=== PATIENT | female | born 1985 | race African-American/Black ===

== ENCOUNTER 2021-06-28 17:01 | Outpatient (CLI) | payer MEDICAID | END 2021-06-28 17:02 | disposition critical access hospital (66) | LOC: EMS 17:01 | DX: O46.92 Antepartum hemorrhage, unspecified, second trimester (principal) | CPT/HCPCS: A0425; A0429; A0999 ==

== ENCOUNTER 2021-06-28 17:06 | Observation (INO) | payer MEDICAID ==
[2021-06-28 17:32] LABS: BASOPHILS % (AUTO) 0.2 %; EOSINOPHILS # (AUTO) 0.1 10^3/uL (0.0-0.7); EOSINOPHILS % (AUTO) 1.4 %; HCT - HEMATOCRIT 30.9 % (37.0-47.0); HGB - HEMOGLOBIN 10.5 g/dL (12.0-16.0); LYMPHOCYTES # (AUTO) 1.8 10^3/uL (1.5-3.5); LYMPHOCYTES % (AUTO) 20.7 %; MEAN CORPUSCULAR HEMOGLOBIN 30.3 pg (27.0-31.0); MEAN CORPUSCULAR VOLUME 89.3 fL (81.0-99.0); MEAN PLATELET VOLUME 8.7 fL (7.9-10.8); MONOCYTES # (AUTO) 0.7 10^3/uL (0.0-1.0); MONOCYTES % (AUTO) 7.6 %; NEUTROPHILS # (AUTO) 6.1 10^3/uL (1.5-6.6); NEUTROPHILS % (AUTO) 69.1 %; PLT - PLATELET COUNT 386 10^3/uL (130-450); RED BLOOD COUNT 3.46 10^6/uL (4.20-5.40); RED CELL DISTRIBUTION WIDTH 13.1 % (12.0-15.0); WHITE BLOOD COUNT 8.8 x10^3/uL (4.8-10.8)
--- NOTE | 2021-06-28 17:35 | ED Physician Documentation ---
History of Present Illness - Stated complaint Stated Complaint: FEMALE - Chief complaint Chief Complaint: Abd Pain - History obtained from History obtained from: Patient - History of Present Illness Timing: Today Pain level max: 0 Pain level now: 0 - Additonal information Additional information: Patient is a 35-year-old female who presents to the emergency department complaining of vaginal bleeding today. G3, P0. She states that she has had constipation for the past few days, today while on the toilet she felt a large gush of fluid from her vaginal area followed by a large amount of bleeding. Concerned about potential miscarriage. She is unsure how far along she is. She could be anywhere from 18 to 22 weeks . She thinks that she had an ultrasound either May 16 or May 23 at [facility] in [place]. Recently moved here. She thinks that she was either 15 or 16 weeks along at that time. She states that she has had no other issues with her . She is having mild abdominal pain and cramping. Review of Systems Ten Systems: 10 systems reviewed and negative Constitutional: denies: Fever, Chills Nose: denies: Rhinorrhea / runny nose, Congestion GI: denies: Vomiting, Diarrhea Skin: denies: Rash Musculoskeletal: denies: Neck pain, Back pain Neurologic: denies: Headache PD PAST MEDICAL HISTORY - Past Medical History Past Medical History: No - Past Surgical History Past Surgical History: No - Allergies Allergies/Adverse Reactions: Allergies Allergy/AdvReac Type Severity Reaction Status Date / Time No Known Drug Allergies Allergy Verified 06/28/21 17:32 PD ED PE NORMAL - Vitals Vital signs reviewed: Yes - General General: Alert and oriented X 3, No acute distress - HEENT HEENT: PERRL, Moist mucous membranes - Neck Neck: Supple, no meningeal sign - Cardiac Cardiac: RRR, Strong equal pulses - Respiratory Respiratory: No respiratory distress, Clear bilaterally - Abdomen Abdomen: Soft, Non tender, Other (Gravid abdomen) - Female Female : Deferred (Deferred to OB) - Back Back: No CVA TTP, No spinal TTP - Derm Derm: Warm and dry - Extremities Extremities: Other (Amniotic fluid present on her jeans.) - Neuro Neuro: Alert and oriented X 3 - Psych Psych: Normal mood, Normal affect Results - Vitals Vitals: Vital Signs - 24 hr 06/28/21 06/28/2122 17:25 17:32 18:53 Temperature 36.7 C Heart Rate 109 H 101 H 95 Respiratory 16 14 14 Rate Blood Pressure 144/77 H 141/83 H 145/84 H O2 Saturation 100 100 100 06/28/21 19:00 Temperature Heart Rate 105 H Respiratory 18 Rate Blood Pressure 145/84 H O2 Saturation 100 Oxygen O2 Source Room air - Labs Labs: Laboratory Tests 06/28/21 06/28/21 06/28/21 17:20 17:20 17:32 WBC 8.8 RBC 3.46 L Hgb 10.5 L Hct 30.9 L MCV 89.3 MCH 30.3 MCHC 34.0 RDW 13.1 Plt Count 386 MPV 8.7 Neut # (Auto) 6.1 Lymph # (Auto) 1.8 Elk # (Auto) 0.7 Eos # (Auto) 0.1 Baso # (Auto) 0.0 Absolute Nucleated RBC 0.00 Nucleated RBC % 0.0 PT 10.8 INR 1.0 APTT 30.1 Sodium 136 Potassium 3.8 Chloride 106 Carbon Dioxide 22 Anion Gap 8.0 BUN 8 Creatinine 0.5 Estimated GFR (MDRD) 139 Glucose 87 Calcium 9.6 Total Bilirubin 0.3 AST 20 ALT 25 Alkaline Phosphatase 36 L Total Protein 6.7 Albumin 3.5 Globulin 3.2 Albumin/Globulin Ratio 1.1 Lipase 35 Membranes Rupture Nasal Adenovirus (PCR) Nasal B. parapertussis DNA (PCR) Nasal Coronavir 229E PCR Nasal Coronavir HKU1 PCR Nasal Coronavir NL63 PCR Nasal Coronavir OC43 PCR Nasal Enterovir/Rhinovir PCR Nasal Influenza B PCR Nasal Influenza A PCR Nasal Parainfluen 1 PCR Nasal Parainfluen 2 PCR Nasal Parainfluen 3 PCR Nasal Parainfluen 4 PCR Nasal RSV (PCR) Nasal B.pertussis DNA PCR Nasal C.pneumoniae (PCR) Quique Human Metapneumo PCR Nasal M.pneumoniae (PCR) Nasal SARS-CoV-2 (PCR) C. glabrata (PCR) C. krusei (PCR) Kelly species DNA T. vaginalis (PCR) Bact Vaginosis (PCR) Blood Type Blood Type Recheck 06/28/21 06/28/21 06/28/21 17:32 17:45 17:46 WBC RBC Hgb Hct MCV MCH MCHC RDW Plt Count MPV Neut # (Auto) Lymph # (Auto) Elk # (Auto) Eos # (Auto) Baso # (Auto) Absolute Nucleated RBC Nucleated RBC % PT INR APTT Sodium Potassium Chloride Carbon Dioxide Anion Gap BUN Creatinine Estimated GFR (MDRD) Glucose Calcium Total Bilirubin AST ALT Alkaline Phosphatase Total Protein Albumin Globulin Albumin/Globulin Ratio Lipase Membranes Rupture POSITIVE A Nasal Adenovirus (PCR) Nasal B. parapertussis DNA (PCR) Nasal Coronavir 229E PCR Nasal Coronavir HKU1 PCR Nasal Coronavir NL63 PCR Nasal Coronavir OC43 PCR Nasal Enterovir/Rhinovir PCR Nasal Influenza B PCR Nasal Influenza A PCR Nasal Parainfluen 1 PCR Nasal Parainfluen 2 PCR Nasal Parainfluen 3 PCR Nasal Parainfluen 4 PCR Nasal RSV (PCR) Nasal B.pertussis DNA PCR Nasal C.pneumoniae (PCR) Quique Human Metapneumo PCR Nasal M.pneumoniae (PCR) Nasal SARS-CoV-2 (PCR) C. glabrata (PCR) C. krusei (PCR) Kelly species DNA T. vaginalis (PCR) Bact Vaginosis (PCR) Blood Type B POSITIVE Blood Type Recheck B POSITIVE 06/28/21 06/28/21 18:40 18:51 WBC RBC Hgb Hct MCV MCH MCHC RDW Plt Count MPV Neut # (Auto) Lymph # (Auto) Elk # (Auto) Eos # (Auto) Baso # (Auto) Absolute Nucleated RBC Nucleated RBC % PT INR APTT Sodium Potassium Chloride Carbon Dioxide Anion Gap BUN Creatinine Estimated GFR (MDRD) Glucose Calcium Total Bilirubin AST ALT Alkaline Phosphatase Total Protein Albumin Globulin Albumin/Globulin Ratio Lipase Membranes Rupture Nasal Adenovirus (PCR) NOT DETECTED Nasal B. parapertussis DNA (PCR) NOT DETECTED Nasal Coronavir 229E PCR NOT DETECTED Nasal Coronavir HKU1 PCR NOT DETECTED Nasal Coronavir NL63 PCR NOT DETECTED Nasal Coronavir OC43 PCR NOT DETECTED Nasal Enterovir/Rhinovir PCR NOT DETECTED Nasal Influenza B PCR NOT DETECTED Nasal Influenza A PCR NOT DETECTED Nasal Parainfluen 1 PCR NOT DETECTED Nasal Parainfluen 2 PCR NOT DETECTED Nasal Parainfluen 3 PCR NOT DETECTED Nasal Parainfluen 4 PCR NOT DETECTED Nasal RSV (PCR) NOT DETECTED Nasal B.pertussis DNA PCR NOT DETECTED Nasal C.pneumoniae (PCR) NOT DETECTED Quique Human Metapneumo PCR NOT DETECTED Nasal M.pneumoniae (PCR) NOT DETECTED Nasal SARS-CoV-2 (PCR) NOT DETECTED C. glabrata (PCR) NEGATIVE C. krusei (PCR) NEGATIVE Kelly species DNA NEGATIVE T. vaginalis (PCR) NEGATIVE Bact Vaginosis (PCR) POSITIVE A Blood Type Blood Type Recheck - Rads (name of study) OB ultrasound Radiology: Final report received, EMP read contemporaneously, See rad report PD MEDICAL DECISION MAKING - ED course Complexity details: reviewed results, re-evaluated patient, considered differential, d/w patient, d/w data communications software consultant ED course: 1727 - Dr. Villalpando - labs ordered, US ordered for dating. Patient was able to pull up her MyChart on her cell phone. It appears that she has 19 weeks and 3 days today. This would be consistent with her estimated due date of November 19, 2021. Patient appears to have a premature rupture of membranes. Patient is between [address] Ryan came and evaluated the patient. Her testing for ruptured membranes is positive. Oligohydramnios present. Patient will be placed in observation for further care. IMPRESSION: 1. Living second trimester intrauterine , measuring 20 weeks 2 days by today's ultrasound. 2. If the previous report is accurate, clinical age is 19 weeks 3 days. 3. Marked oligohydronephrosis. 4. Short cervix. Departure - Departure Disposition: ED Place in Observation Clinical Impression: Vaginal bleeding before 22 weeks gestation Premature rupture of membranes Qualifiers: PROM onset of labor timing: unspecified duration between rupture of membranes and onset of labor PROM gestational age: -second trimester Qualified Code(s): O42.912 - premature rupture of membranes, unspecified as to length of time between rupture and onset of labor, second trimester Condition: Stable Discharge Date/Time: 06/28/21 20:04
[2021-06-28 17:45] LABS: PT - PROTHROMBIN TIME 10.8 secs (9.9-12.6)
[2021-06-28 17:52] LABS: PARTIAL THROMBOPLASTIN TIME 30.1 secs (24.9-33.3)
[2021-06-28 17:55] LABS: RUPTURE OF MEMBRANES PLUS POSITIVE (NEGATIVE)
[2021-06-28 18:04] LABS: ALBUMIN 3.5 g/dL (3.2-5.5); ALBUMIN/GLOBULIN RATIO 1.1 (1.0-2.2); BILIRUBIN,TOTAL 0.3 mg/dL (0.2-1.0); CALCIUM 9.6 mg/dL (8.5-10.3); CREATININE 0.5 mg/dL (0.4-1.0); POTASSIUM 3.8 mmol/L (3.5-5.0); TOTAL PROTEIN 6.7 g/dL (6.7-8.2)
[2021-06-28 19:51] LABS: B. PARAPERTUSSIS- RESP PCR PAN NOT DETECTED; B. PERTUSSIS- RESP PCR PANEL NOT DETECTED; C. PNEUMONIAE- RESP PCR PANEL NOT DETECTED; CORONAVIRUS 229E-RESP PCR NOT DETECTED; CORONAVIRUS HKU1-RESP PCR NOT DETECTED; CORONAVIRUS NL63-RESP PCR NOT DETECTED; CORONAVIRUS OC43-RESP PCR NOT DETECTED; HUMAN METAPNEUMOVIRUS NOT DETECTED; INFLUENZA A- RESP PCR PANEL NOT DETECTED; INFLUENZA B - RESP PCR PANEL NOT DETECTED; M. PNEUMONIAE- RESP PCR PANEL NOT DETECTED; PARAINFLUENZA VIRUS 1 NOT DETECTED; PARAINFLUENZA VIRUS 2 NOT DETECTED; PARAINFLUENZA VIRUS 3 NOT DETECTED; PARAINFLUENZA VIRUS 4 NOT DETECTED; RHINOVIRUS/ENTEROVIRUS NOT DETECTED; RSV- RESP PCR PANEL NOT DETECTED; SARS-CoV-2 -RESP PCR PANEL NOT DETECTED
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
--- NOTE | 2021-06-28 20:16 | Ultrasound Report ---
PROCEDURE: OB 14+ Weeks INDICATIONS: vaginal bleeding/ 18-20 weeks. Question premature rupture of membranes. OUTSIDE/PRIOR DATING DATA: Last menstrual period (LMP): Unknown LMP-based estimated date of delivery (PATRICIA): Unknown. First dating scan (date and location): Unknown scan date. Estimated date of delivery (PATRICIA) from first dating scan: 5 prior report from [place], PATRICIA is 11/19/2021 . The below data below was generated using the prior ultrasound report PATRICIA of 11/19/2021 TECHNIQUE: Real-time scanning was performed of the fetus, with image documentation and biometric measurements. Endovaginal scanning: Not performed COMPARISON: None. FINDINGS: General: A single living intrauterine gestation is present. Presentation: Vertex Placenta: Placental position is anterior, without previa. Amniotic fluid index: 1.7 cm, markedly diminished for gestational age. Largest pocket is 0.93 cm heart rate: 131 beats per minute. Maternal cervical canal: 2.7 cm long; normal length is 2.5 cm or more. biometrics: Biparietal diameter: 4.75 cm, 20 weeks 3 days Head circumference: 16.98 cm, 19 weeks 4 days Abdominal circumference: 14.8 cm, 20 weeks 1 day Femur length: 3.5 cm, 21 weeks 1 day Estimated gestational age from initial scan: By report, 19 weeks 3 days Composite gestational age from present scan: 20 weeks 2 days Estimated weight and percentile: 357 g, 94.6 percentile Measurement variability for biometric dating: +/- 10 days from 12-20 weeks gestation, +/- 2 weeks fro m 20-30 weeks gestation, +/- 3 weeks for 30 weeks gestation or later. Anatomic survey: Neuro: Ventricles are non-dilated at less than 10 mm. Cisterna magna is normal at 3-11 mm. Cerebel lum is normal in size and morphology. Nuchal skin fold: Normal at less than 6 mm between 14-20 weeks gestational age. Face: Nose and lips, facial profile are normal. Spine: No evidence for spina bifida. Heart: 4-chambered heart is present, with normal ventricular outflow tracts. Diaphragm: Diaphragm is intact. Stomach: Left-sided stomach is present. Kidneys: No hydronephrosis. Normal is less than 5 mm in 2nd trimester, less than 7 mm in 3rd trimester. Cord: 3-vessel cord has orthotopic insertion. Bladder: Normal in size. Extremities: All 4 extremities identified. IMPRESSION: 1. Living second trimester intrauterine , measuring 20 weeks 2 days by today's ultrasound. 2. If the previous report is accurate, clinical age is 19 weeks 3 days. 3. Marked oligohydronephrosis. 4. Short cervix. Above discussed with Dr. Ryan at the time of dictation. Reviewed by: Fredi Mosquera MD on 06/28/2021 8:14 PM PDT Approved by: Fredi Mosquera MD on 06/28/2021 8:14 PM PDT Station ID: [id number]
[2021-06-28 20:17] LABS: BILIRUBIN,URINE NEGATIVE (NEGATIVE); GLUCOSE, URINE (UA) NEGATIVE (NEGATIVE); KETONES,URINE (UA) 40 mg/dL (NEGATIVE); LEUKOCYTE ESTERASE, URINE NEGATIVE (NEGATIVE); NITRITE,URINE NEGATIVE (NEGATIVE); OCCULT BLOOD,URINE TRACE-INTA (NEGATIVE); PROTEIN,URINE NEGATIVE (NEGATIVE); UROBILINOGEN,URINE 0.2 (NORMAL) E.U./dL (NORMAL)
[2021-06-28 20:19] LABS: CLARITY,URINE CLEAR (CLEAR)
[2021-06-28 20:30] LABS: BACTERIA,URINE None Seen /HPF (None Seen); RBC,URINE 0-5 /HPF (0-5); SQUAMOUS EPITHELIAL CELL,UR FEW Squamous (<= Few); WBC,URINE 0-3 /HPF (0-5)
[2021-06-28 21:09] LABS: BACTERIAL VAGINOSIS DNA POSITIVE (NEGATIVE); CANDIDA GLABRATA DNA NEGATIVE (NEGATIVE); CANDIDA GROUP DNA NEGATIVE (NEGATIVE); CANDIDA KRUSEI DNA NEGATIVE (NEGATIVE); TRICHOMONAS VAGINALIS DNA NEGATIVE (NEGATIVE)
[2021-06-28] MEDS ORDERED: METHYLERGONOVINE 0.2 MG/ML VIAL IM PRN (22:13)
[2021-06-28] MEDS ORDERED: miSOPROStoL 200 MCG TABLET BC PRN (22:13)
[2021-06-28] MEDS ORDERED: CARBOPROST TROMETHAMINE 250 MCG/ML AMP IM PRN (22:13)
[2021-06-28] MEDS ORDERED: LABETALOL 20 MG/4 ML SYRINGE IVP PRN (22:13)
[2021-06-28] MEDS ORDERED: SODIUM CHLORIDE FLUSH 0.9% 10 ML SYRINGE IVP PRN (22:13)
[2021-06-28] MEDS ORDERED: TRANEXAMIC ACID IN NACL 1,000 MG/100 ML BAG IV PRN (22:13)
[2021-06-28] MEDS ORDERED: OXYTOCIN 10 UNIT/ML VIAL IM PRN (22:13)
[2021-06-28] MEDS ORDERED: miSOPROStoL 200 MCG TABLET PR PRN (22:13)
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
[2021-06-28] MEDS ORDERED: diphenhydrAMINE 25 MG CAPSULE PO PRN (22:16)
[2021-06-28] MEDS ORDERED: ZOLPIDEM 5 MG TABLET PO PRN (22:17)
[2021-06-28 22:52] LABS: CHLAMYDIA TRACHOMATIS DNA NEGATIVE (NEGATIVE); NEISSERIA GONORRHOEAE DNA NEGATIVE (NEGATIVE)
[2021-06-28] MEDS: metroNIDAZOLE 250 MG TABLET PO SCH (23:04)
[2021-06-28] MEDS: ACETAMINOPHEN 500 MG TABLET PO PRN (23:04)
[2021-06-29] MEDS ORDERED: metroNIDAZOLE 250 MG TABLET PO SCH (08:00)
[2021-06-29] MEDS: metroNIDAZOLE 250 MG TABLET PO SCH ×2 (08:04→12:01)
[2021-06-29] MEDS: SODIUM CHLORIDE FLUSH 0.9% 10 ML SYRINGE IVP SCH ×2 (08:05→08:06)
[2021-06-29 08:11] VITALS: BP 140/78
[2021-06-29] MEDS: ACETAMINOPHEN 500 MG TABLET PO PRN (09:30)
--- NOTE | 2021-06-30 14:36 | PROVIDER PROGRESS NOTE ---
Subjective - Prog Note Date Prog Note Date: 06/29/21 Prog Note Time: 13:00 - Subjective Subjective: Patient has not had contractions or bleeding overnight. Minimal passage of fluid per vagina but has had Purewick in place as is nervous to ambulate. Endorses some FM. Objective - Vital Signs/Intake & Output Reviewed Vital Signs: Yes Vital Signs: 97.7 99 140/78 96 Intake & Output: Intake & Output 06/27/21 06/28/21 06/29/21 06/30/21 23:59 23:59 23:59 23:59 Intake Total 400 Output Total 3200 Balance -2800 - Objective General Appearance: positive: No acute distress Respiratory: positive: No respiratory distress, Breath sounds nml Cardiovascular: positive: Regular rate & rhythm Peripheral Pulses: 2+ Dorsalis pedis (R), 2+ Dorsalis pedis (L) Abdomen: positive: Non-tender, Other (gravid, S&NT/ND) Extremities: positive: Non-tender, No pedal edema Neurologic/Psychiatric: positive: Oriented x3 - Lab Results Fish Bones: 06/28/21 17:20 06/28/21 17:20 Other Labs: Lab Results x24hrs 06/28/21 Range/Units 18:40 Group B Strep (PCR) NEGATIVE (NEGATIVE) - Diagnostic Imaging Diagnostic Imaging Comments: BSUS shows viable IUP with FHTs in the 130s Minimal amniotic fluid noted Assessment/Plan - Problem List (1) Premature rupture of membranes Impression: PPROM:Patient and partner have had extended discussion and are opting to continue the despite curriculum counselor regarding poor prognosis Will fu in clinic today and will obtain referral to [facility] for outpatient consultation BV: vaginitis panel positive for BV. Patient was started on metronidazole and outpatient prescription provided Shorted cervix: CL was 2.7 but visually and palpably closed -Reviewed that in the absence of PPROM, vaginal micronized progesterone would be prescribed -Reviewed that nothing should be placed in the vagina given high risk of choriomanionitis/uterine infection -Reviewed that there are no data on oral use of micronized progesterone in this setting but I would be willing to provide an rx as an alternative until [facility] assessment. HTN: Has had elevated blood pressures in mild range before 20 week gestation, meeting criteria for CHTN in Will FU in clinic today. Will sign JAYESH for prior records. Reviewed warning signs and import of pelvic rest Qualifiers: PROM onset of labor timing: unspecified duration between rupture of membranes and onset of labor PROM gestational age: -second trimester Qualified Code(s): O42.912 - premature rupture of membranes, unspecified as to length of time between rupture and onset of labor, second trimester
== END 2021-06-29 14:00 | disposition home or self-care (01) ==
LOC: ED 17:06 → FBP 19:16
PROVIDERS: ADMIT Obstetrics & Gynecology; ATTEND Obstetrics & Gynecology
DX: O42.912 Preterm premature rupture of membranes, unspecified as to length of time between rupture and onset of labor, second trimester (principal); Z3A.19 19 weeks gestation of pregnancy; O09.522 Supervision of elderly multigravida, second trimester; O99.612 Diseases of the digestive system complicating pregnancy, second trimester; K59.00 Constipation, unspecified; O26.872 Cervical shortening, second trimester; O23.592 Infection of other part of genital tract in pregnancy, second trimester; B96.89 Other specified bacterial agents as the cause of diseases classified elsewhere; O26.892 Other specified pregnancy related conditions, second trimester; R03.0 Elevated blood-pressure reading, without diagnosis of hypertension; Z20.822 Contact with and (suspected) exposure to COVID-19; Z87.891 Personal history of nicotine dependence
CPT/HCPCS: 36415; 76805; 80053; 81001; 81514; 83690; 84112; 85025; 85610; 85730; 86900; 86901; 87491; 87591; 87633; 87797; 99284; 99285; A9270; G0378; 87086; 87661

== ENCOUNTER 2021-07-03 14:31 | Outpatient (CLI) | payer OTHER, MEDICAID | END 2021-07-03 14:32 | disposition critical access hospital (66) | LOC: EMS 14:31 | DX: O60.02 Preterm labor without delivery, second trimester (principal) | CPT/HCPCS: A0425; A0429 ==

== ENCOUNTER 2021-07-03 15:13 | Inpatient (IN) | payer OTHER, MEDICAID ==
[2021-07-03] MEDS ORDERED: hydrALAZINE INJ 20 MG/ML VIAL IVP PRN ×2 (15:34)
[2021-07-03] MEDS ORDERED: miSOPROStoL 200 MCG TABLET PR PRN (15:34)
[2021-07-03] MEDS ORDERED: miSOPROStoL 200 MCG TABLET BC PRN (15:34)
[2021-07-03] MEDS ORDERED: CARBOPROST TROMETHAMINE 250 MCG/ML AMP IM PRN (15:34)
[2021-07-03] MEDS ORDERED: OXYTOCIN 10 UNIT/ML VIAL IM PRN (15:34)
[2021-07-03] MEDS ORDERED: OXYTOCIN/SODIUM CHLORIDE 500 ML IV PRN (15:34)
[2021-07-03] MEDS ORDERED: METHYLERGONOVINE 0.2 MG/ML VIAL IM PRN (15:34)
[2021-07-03] MEDS ORDERED: LABETALOL 20 MG/4 ML SYRINGE IVP PRN ×3 (15:34)
[2021-07-03] MEDS ORDERED: TRANEXAMIC ACID IN NACL 1,000 MG/100 ML BAG IV PRN (15:34)
[2021-07-03] MEDS ORDERED: SODIUM CHLORIDE FLUSH 0.9% 10 ML SYRINGE IVP PRN (15:34)
[2021-07-03] MEDS ORDERED: LIDOCAINE-MPF 1% 30 ML VIAL ID PRN (15:34)
[2021-07-03] MEDS ORDERED: NIFEdipine 10 MG CAPSULE PO PRN (15:34)
--- NOTE | 2021-07-03 15:41 | HISTORY & PHYSICAL EXAMINATION ---
History and Physical - History and Physical HPI: Patient is a 35-year-old -0-2-0 at 20 weeks 1 day gestation by LMP consistent with 14-week ultrasound. Patient began having contractions around 03 100 this morning that gradually increased in frequency, initially slightly less than every 30 minutes, and now occurring every 3 or so minutes. She has intense low belly pain. She did notice some greenish-yellow discharge when she went to the bathroom. She denies fever or chills. She already had rupture membranes, so she has not noticed an increase in loss of fluid. No vaginal bleeding. Denies headache, change in vision, right upper quadrant pain. Denies urinary urgency or dysuria. All other symptoms reviewed and were negative except per HPI. Course Patient received care at [facility] in [place], and she recently moved to [facility] due to a new job, but she has not been able to establish care. She was seen in our triage unit 5 days ago for previable rupture of membranes. At that time she was diagnosed with bacterial vaginosis and also started on metronidazole. At that time, there was a discussion about expectant management versus termination of , and patient elected for continuation. PNL: B pos/ HIV NR/ RPR NR/ Rub 14.5/ HCT 34.3/ TSH 1.08/GCCT/trich negx3/ Pap NILM 05/16/21 NT wnl 05/23/21 PMH Asthma PSH Tonsillectomy OB History -0-2-0 1. 12 weeks, elective termination 2. 22 weeks, spontaneous loss of twins with what sounds like advanced cervical dilation SH Quit smoking 7 years ago. No alcohol or drugs. Currently living with ranjit, new to [place] recently from [place]. Feels safe at home. Family History Mother: Diabetes Father: Diabetes Sister: Sarcoidosis Maternal aunt: Liver cancer Allergies No known drug allergies Medications Metronidazole Physical exam: Temp Pulse Resp BP Pulse Ox 99.5 F 117 H 24 153/82 H 07/03/21 15:20 07/03/21 15:20 07/03/21 15:20 07/03/21 15:20 General: Actively laboring. Sad but well between contractions. Head: Normal cephalic atraumatic Eyes: PERRLA, extraocular motions intact. Respiratory: Normal rate of respiration. No accessory muscle use, normal respiratory effort. Cardiovascular: Regular rate and rhythm Abdomen: Gravid, nontender, nondistended, minimal lower abdominal tenderness. Extremities: Normal range of motion Neuro: Oriented x3. Normal movements Psych: Appropriate mood and affect given the situation. Normal judgment and insight SSE: Moderate amount of green-yellow discharge coming from cervical os. No active bleeding. SVE: 1/0/-3 FHT: 130 bpm baseline Laboratory Last Values WBC 13.2 x10^3/uL (4.8-10.8) H 07/03/21 16:41 RBC 3.86 10^6/uL (4.20-5.40) L 07/03/21 16:41 Hgb 11.8 g/dL (12.0-16.0) L 07/03/21 16:41 Hct 34.5 % (37.0-47.0) L 07/03/21 16:41 MCV 89.4 fL (81.0-99.0) 07/03/21 16:41 MCH 30.6 pg (27.0-31.0) 07/03/21 16:41 MCHC 34.2 g/dL (32.0-36.0) 07/03/21 16:41 RDW 12.7 % (12.0-15.0) 07/03/21 16:41 Plt Count 396 10^3/uL (130-450) 07/03/21 16:41 MPV 8.3 fL (7.9-10.8) 07/03/21 16:41 Neut # (Auto) 11.5 10^3/uL (1.5-6.6) H 07/03/21 16:41 Lymph # (Auto) 0.8 10^3/uL (1.5-3.5) L 07/03/21 16:41 [place] # (Auto) 0.8 10^3/uL (0.0-1.0) 07/03/21 16:41 Eos # (Auto) 0.0 10^3/uL (0.0-0.7) 07/03/21 16:41 Baso # (Auto) 0.0 10^3/uL (0.0-0.1) 07/03/21 16:41 Absolute Nucleated RBC 0.00 x10^3/uL 07/03/21 16:41 Nucleated RBC % 0.0 /100WBC 07/03/21 16:41 Sodium 132 mmol/L (135-145) L 07/03/21 16:41 Potassium 4.0 mmol/L (3.5-5.0) 07/03/21 16:41 Chloride 100 mmol/L (101-111) L 07/03/21 16:41 Carbon Dioxide 20 mmol/L (21-32) L 07/03/21 16:41 Anion Gap 12.0 (6-13) 07/03/21 16:41 BUN 7 mg/dL (6-20) 07/03/21 16:41 Creatinine 0.6 mg/dL (0.4-1.0) 07/03/21 16:41 Estimated GFR (MDRD) 136 (>89) 07/03/21 16:41 Glucose 106 mg/dL (70-100) H 07/03/21 16:41 Calcium 9.7 mg/dL (8.5-10.3) 07/03/21 16:41 Total Bilirubin 0.5 mg/dL (0.2-1.0) 07/03/21 16:41 AST 27 IU/L (10-42) 07/03/21 16:41 ALT 34 IU/L (10-60) 07/03/21 16:41 Alkaline Phosphatase 66 IU/L (42-121) 07/03/21 16:41 Total Protein 7.4 g/dL (6.7-8.2) 07/03/21 16:41 Albumin 3.4 g/dL (3.2-5.5) 07/03/21 16:41 Globulin 4.0 g/dL (2.1-4.2) 07/03/21 16:41 Albumin/Globulin Ratio 0.9 (1.0-2.2) L 07/03/21 16:41 Plan 35-year-old -0-2-0 at 20 weeks 1 day gestation by LMP consistent with 14- week ultrasound presenting for previable rupture of membranes with concern for chorioamnionitis 1. Previable rupture of membranes -Francisco approximately 3 minutes. -Previously consulted with [facility], and agree that no interventions possible until after 22 weeks gestation. -Plan to admit for pain control. Discussed due to the concern for chorioamnionitis, will not do anything to slow down labor. Can get epidural for pain control. If labor stalls, will likely need to discuss augmentation as she appears to be developing urine infection. -Currently benign exam, afebrile. Mild tachycardia. Will continue to assess for worsening infection. 2. 20 weeks gestation -Discussed with patient and partner that we can only offer comfort care. 3. Bacterial vaginosis -Has been taking metronidazole twice daily since discharge 4. Elevated blood pressure -Concern for chronic hypertension, but given the situation, pain, and distress, may not be an accurate result. Her first reading was at 19 weeks, second reading at 20 weeks 1 day. Given her early gestation, very low likelihood of preeclampsia at this point. Likely chronic.
[2021-07-03] MEDS: fentaNYL 100 MCG/2 ML VIAL IVP PRN (15:54)
[2021-07-03] MEDS: SODIUM CHLORIDE FLUSH 0.9% 10 ML SYRINGE IVP SCH (16:02)
[2021-07-03 16:51] LABS: BASOPHILS % (AUTO) 0.3 %; EOSINOPHILS % (AUTO) 0.2 %; HCT - HEMATOCRIT 34.5 % (37.0-47.0); HGB - HEMOGLOBIN 11.8 g/dL (12.0-16.0); LYMPHOCYTES # (AUTO) 0.8 10^3/uL (1.5-3.5); LYMPHOCYTES % (AUTO) 6.4 %; MEAN CORPUSCULAR HEMOGLOBIN 30.6 pg (27.0-31.0); MEAN CORPUSCULAR HGB CONC 34.2 g/dL (32.0-36.0); MEAN CORPUSCULAR VOLUME 89.4 fL (81.0-99.0); MEAN PLATELET VOLUME 8.3 fL (7.9-10.8); MONOCYTES # (AUTO) 0.8 10^3/uL (0.0-1.0); MONOCYTES % (AUTO) 5.7 %; NEUTROPHILS # (AUTO) 11.5 10^3/uL (1.5-6.6); NEUTROPHILS % (AUTO) 86.7 %; PLT - PLATELET COUNT 396 10^3/uL (130-450); RED BLOOD COUNT 3.86 10^6/uL (4.20-5.40); RED CELL DISTRIBUTION WIDTH 12.7 % (12.0-15.0); WHITE BLOOD COUNT 13.2 x10^3/uL (4.8-10.8)
[2021-07-03] MEDS ORDERED: ROPIVACAINE 0.2% 200 MG/100 ML BAG EP ONE (16:59)
[2021-07-03 17:02] LABS: ALBUMIN 3.4 g/dL (3.2-5.5); ALBUMIN/GLOBULIN RATIO 0.9 (1.0-2.2); BILIRUBIN,TOTAL 0.5 mg/dL (0.2-1.0); CALCIUM 9.7 mg/dL (8.5-10.3); CREATININE 0.6 mg/dL (0.4-1.0); TOTAL PROTEIN 7.4 g/dL (6.7-8.2)
[2021-07-03] MEDS ORDERED: METOCLOPRAMIDE 10 MG/2 ML VIAL IVP PRN (18:23)
[2021-07-03] MEDS ORDERED: ePHEDrine 50 MG/ML VIAL IVP PRN (18:23)
[2021-07-03] MEDS ORDERED: NALBUPHINE 10 MG/ML AMP IVP PRN (18:23)
[2021-07-03] MEDS ORDERED: diphenhydrAMINE INJ 50 MG/ML VIAL IVP PRN (18:23)
[2021-07-03] MEDS ORDERED: ONDANSETRON 4 MG/2 ML VIAL IVP PRN (18:23)
[2021-07-03] MEDS ORDERED: NALOXONE 0.4 MG/ML VIAL IVP PRN (18:23)
[2021-07-03] MEDS ORDERED: ROPIVACAINE 0.2% 200 MG/100 ML BAG EP PRN (18:23)
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
[2021-07-03] MEDS: LACTATED RINGERS 1,000 ML IV SCH (18:50)
--- NOTE | 2021-07-03 20:29 | PROVIDER PROGRESS NOTE ---
Labor Progress Note - Vaginal Exam Dilation (in cm): 3 Effacement (%): 20 Station: -2 - Labor Progress Note Labor Progress Note/Additional Text: Patient continues to contract, less than every 3-5 minutes while I was in the room, but occasionally space out per nursing. Cervix now 3 cm dilated, and parts are palpated in the cervical canal. Pain control is diminished, but this may be due to cervical stretch. Discussed adding opioid medication on top of the epidural, and will use cautiously. Plan to continue expectant management at this time as she is frequently edilia and changing her cervix. Will initiate oxytocin if contractions space out. Not monitoring fetus due to gestational age. Mobile tocometer not picking up contractions. Will move to another room if oxytocin is needed, but desire to keep patient comfortable at this time if possible. Patient remains afebrile. Intermittent tachycardia during contractions, but resolves as contraction dissipates. No hypotension. Good oxygen saturation and respiratory rate. Low concern for sepsis at this point.
[2021-07-03] MEDS ORDERED: MORPHINE 2 MG/ML CARPUJECT IVP PRN ×2 (20:50→20:52)
[2021-07-03] MEDS ORDERED: MORPHINE 2 MG/ML CARPUJECT IVP SCH (21:00)
[2021-07-03] MEDS: MORPHINE 2 MG/ML CARPUJECT IVP PRN (22:23)
[2021-07-04] MEDS: MORPHINE 2 MG/ML CARPUJECT IVP PRN ×2 (00:29→03:15)
[2021-07-04] MEDS: LACTATED RINGERS 1,000 ML IV SCH ×5 (02:43→20:56)
--- NOTE | 2021-07-04 06:41 | DELIVERY NOTE ---
Delivery Note - Labor Labor: positive: Spontaneous - Delivery Method Delivery Method: positive: Spontaneous vaginal delivery - Presentation Presentation: positive: Breech - Anesthetic Anesthetic Type: - Amniotic Fluid Description Amniotic Fluid Description: positive: Moderate meconium (small amount of discharge) - Laceration Laceration: positive: None - Delivery Outcome Delivery Outcome: positive: Livebirth (Previable) - [place] sex: positive: Male - Cord Cord: positive: 2 vessels - Placenta Placenta: positive: Intact - Estimated Blood Loss Estimated Blood Loss (in cc): 50 - Post Delivery Events Post Delivery Events: positive: Retained placenta - Delivery Comments (Free Text/Narrative) Delivery Comments (Free Text/Narrative): Preoperative Diagnoses Previable rupture of membranes 20 weeks gestation Bacterial vaginosis Elevated blood pressures Postoperative Diagnoses Same Status post spontaneous vaginal delivery Retained products of conception Patient presented 6 days ago with rupture of membranes and was counseled on the risk and benefit of expectant management versus induction of labor and patient elected for expectant management. She returned yesterday with contractions and concern for infection, so she was kept for labor. Patient labor throughout the night edilia frequently and changing her cervix, so no augmentation was needed. When she felt the change in pressure this morning, she checked and parts were felt in the vagina. Bedside ultrasound confirmed the fetus was in the breech position. Delivery Summary: Patient was placed in the dorsal lithotomy position. Upon maternal pushing the sacrum delivered and continued pushing until feet spontaneously delivered. The torso, arms, and and head then delivered quickly thereafter. A male was delivered with APGARS of 5 at 1 minute and 2 at 5 minutes. The cord was clamped and cut x2 and the was placed in a blanket on the mother's chest. Oxytocin was added to the IV fluid and allowed to run freely. After approximately 1 hour, patient felt the urge to push and had a gush of blood, so gentle traction was applied to the umbilical cord. During this time, the cord evulsed. The oxytocin was continued. After approximately 1 hour, she received 1 dose of misoprostol when the oxytocin was discontinued. She continued to have pain and had a syncopal events and a rapid response was called. She had a period of hypotension that resolved spontaneously. IV fluids was initiated. She became well, then had a short episode where her eyes rolled upwards, then a few seconds of jerking movements that resolved spontaneously. Another episode of hypotension ensued, and the code team was called. She recovered spontaneously, but as monitor technician was being placed, decision was made to move to the OR for dilation and curettage for removal of retained placenta. Please see operative note for further details. weight is pending at this time.
[2021-07-04 08:52] LABS: BASOPHILS % (AUTO) 0.2 %; EOSINOPHILS % (AUTO) 0.2 %; HCT - HEMATOCRIT 28.4 % (37.0-47.0); HGB - HEMOGLOBIN 9.7 g/dL (12.0-16.0); LYMPHOCYTES # (AUTO) 1.6 10^3/uL (1.5-3.5); LYMPHOCYTES % (AUTO) 11.5 %; MEAN CORPUSCULAR HEMOGLOBIN 30.5 pg (27.0-31.0); MEAN CORPUSCULAR HGB CONC 34.2 g/dL (32.0-36.0); MEAN CORPUSCULAR VOLUME 89.3 fL (81.0-99.0); MEAN PLATELET VOLUME 8.3 fL (7.9-10.8); MONOCYTES # (AUTO) 1.1 10^3/uL (0.0-1.0); MONOCYTES % (AUTO) 7.5 %; NEUTROPHILS # (AUTO) 11.2 10^3/uL (1.5-6.6); PLT - PLATELET COUNT 392 10^3/uL (130-450); RED BLOOD COUNT 3.18 10^6/uL (4.20-5.40); RED CELL DISTRIBUTION WIDTH 12.7 % (12.0-15.0); WHITE BLOOD COUNT 14.1 x10^3/uL (4.8-10.8)
[2021-07-04 09:04] LABS: ALBUMIN 2.9 g/dL (3.2-5.5); ALBUMIN/GLOBULIN RATIO 0.9 (1.0-2.2); BILIRUBIN,TOTAL 0.4 mg/dL (0.2-1.0); CALCIUM 8.9 mg/dL (8.5-10.3); CREATININE 0.6 mg/dL (0.4-1.0); POTASSIUM 3.7 mmol/L (3.5-5.0); TOTAL PROTEIN 6.2 g/dL (6.7-8.2)
[2021-07-04] MEDS ORDERED: BUPIVACAINE 0.25% PF 10 ML VIAL ONE (09:15)
[2021-07-04] MEDS ORDERED: LIDOCAINE 2%-EPI 1:100000 20 ML MDV ONE (09:15)
[2021-07-04] MEDS ORDERED: MIDAZOLAM 2 MG/2 ML VIAL ONE (09:15)
[2021-07-04] MEDS ORDERED: CARBOPROST TROMETHAMINE 250 MCG/ML AMP IM ONE (09:16)
[2021-07-04] MEDS ORDERED: fentaNYL 100 MCG/2 ML VIAL ONE ×2 (09:16→11:46)
[2021-07-04] MEDS ORDERED: miSOPROStoL 200 MCG TABLET ONE (09:16)
[2021-07-04] MEDS ORDERED: METHYLERGONOVINE 0.2 MG/ML VIAL ONE (09:17)
[2021-07-04] MEDS ORDERED: SODIUM CHLORIDE 0.9% 1,000 ML IV ONE (09:21)
[2021-07-04] MEDS ORDERED: ceFAZolin 1 GM VIAL ONE (09:22)
[2021-07-04] MEDS ORDERED: SODIUM CHLORIDE 0.9% IV ONE (09:30)
[2021-07-04] MEDS ORDERED: GENTAMICIN IV ONE (09:30)
[2021-07-04] MEDS ORDERED: LIDOCAINE 2%-EPI 1:100000 20 ML MDV SUBQ ONE (09:44)
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
[2021-07-04] MEDS ORDERED: ATROPINE ABBOJECT 1 MG/10 ML SYRINGE IVP PRN (09:50)
[2021-07-04] MEDS ORDERED: HYDROmorphone 0.5 MG/0.5 ML SYRINGE IVP PRN (09:50)
[2021-07-04] MEDS ORDERED: NALOXONE 0.4 MG/ML VIAL IVP PRN (09:50)
[2021-07-04] MEDS ORDERED: ePHEDrine 50 MG/ML VIAL IVP PRN (09:50)
[2021-07-04] MEDS ORDERED: ONDANSETRON 4 MG/2 ML VIAL IVP PRN (09:50)
[2021-07-04] MEDS ORDERED: METOCLOPRAMIDE 10 MG/2 ML VIAL IVP PRN (09:50)
[2021-07-04] MEDS ORDERED: fentaNYL 100 MCG/2 ML VIAL IVP PRN (09:50)
[2021-07-04] MEDS ORDERED: MORPHINE 2 MG/ML CARPUJECT IVP PRN (09:50)
[2021-07-04] MEDS ORDERED: LACTATED RINGERS 1,000 ML IV SCH (10:00)
[2021-07-04] MEDS ORDERED: TRANEXAMIC ACID 1,000 MG/10 ML VIAL ONE (10:53)
[2021-07-04] MEDS ORDERED: LACTATED RINGERS 1,000 ML IV ONE (11:24)
--- NOTE | 2021-07-04 11:31 | OPERATIVE REPORT ---
Operative Report - General Admit Date: 07/03/21 Planned Procedure: Dilation and curettage Pre-Op Diagnosis: Retained products of conception, hemorrhage Procedure Performed: Dilation and curettage Post Op Diagnosis: Retained products of conception, hemorrhage, dilation/curettage - Procedure Note Primary Surgeon: Austin Duron MD Secondary Surgeon: Hina Ryan MD Anesthesia Provider: Galen Irving CRNA Anesthesia Technique: General ET tube Pathology: Products of conceptio IV Fluids (mL): 1,000 Estimated Blood Loss (mL): 600 (After delivery, patient had approximately 1400 mL of blood in urine in the bed, as well as 600 in the OR. Total estimated blood loss approximately 1500.) Urine Output (mL): 150 Complications: None - Other Other Information/Narrative: Patient was taken to the OR where general anesthesia was obtained. She was placed in the dorsolithotomy position and was prepoped dnd draped in the usual sterile fashion. Weighted speculum was placed in the vagina with good visualized of the cervix was noted to be approximately 6 cm dilated. Attempt was made to manually grasp the placenta, but dilation of the cervix did not allow this. The uterus was sounded to 14 cm, and a sharp curetting was performed that produced fragments of placental tissue and a large amount of clot. After several passes, the suction catheter was then used to remove clot and tissue and collected in the canister. I asked Dr. Ryan to scrub in as there seemed to be less placental tissue than anticipated and to allow the use of the ultrasound for visualization. It appeared to be mostly clots remaining, but the patient has a known history of fibroids, so we asked for the radiologist to come help identi fy and remaining placental tissue, but the remains of the uterine contents appeared to be clots. These were removed with additional passes of the banjo curette as well as suction catheter, patient's bleeding was minimal. Sponge and instrument counts were correct. Patient received 2 units of PRBCs intraoperatively that were ordered prior to leaving for the OR. She also received 1 g of tranexamic acid for blood loss. At the end of the procedure, 800 mcg of misoprostol replaced rectally. Patient was taken to the PACU in good condition.
[2021-07-04] MEDS: fentaNYL 100 MCG/2 ML VIAL IVP PRN ×2 (12:36→15:20)
[2021-07-04] MEDS: AMPICILLIN 2 GM in SODIUM CHLORIDE 0.9% MINIBAG 100 ML IV SCH ×2 (12:37→20:00)
--- NOTE | 2021-07-04 13:31 | ANESTHESIA POST OP EVALUATION ---
Anesthesia Post Eval - Post Anesthesia Eval Vitals: Last Vital Signs Temp 36.8 C 07/04/21 12:00 Pulse 102 H 07/04/21 12:30 Resp 18 07/04/21 12:30 BP 109/58 L 07/04/21 12:30 Pulse Ox 97 07/04/21 12:30 CV Function Including HR & BP: Stable Pain Control: Satisfactory Nausea & Vomiting: Negative Mental Status: Baseline Respiratory Status: Airway Patent Hydration Status: Satisfactory Anesthesia Complications: None
--- NOTE | 2021-07-04 14:01 | Ultrasound Report ---
PROCEDURE: Pelvic Limited or F/U INDICATIONS: Retained placental TECHNIQUE: Real-time transabdominal scanning was performed of the pelvic organs, with image documentation. COMPARISON: None. FINDINGS: After dilatation and curettage, intraoperative sonographic images of the uterus were obtained which d emonstrate a large nonvascular mixed echogenicity material within the uterine cavity consistent with a large hematoma and collection of blood products. And there is a thin hypoechoic peripheral rim of t his collection measuring 1-2 mm. The uterine wall appears thickened but with slightly heterogenous ec hotexture which is consistent with recent status. IMPRESSION: Hematoma and collection of blood products in the uterine cavity. No evidence of retained placental el ements. Reviewed by: Andrzej Patel MD on 07/04/2021 2:00 PM PDT Approved by: Andrzej Patel MD on 07/04/2021 2:00 PM PDT Station ID: [id number]
--- NOTE | 2021-07-04 14:09 | PROVIDER PROGRESS NOTE ---
Subjective - Subjective Pt reports feeling: Improved Subjective: Temp Pulse Resp BP Pulse Ox 98.2 F 102 H 18 109/58 L 97 07/04/21 12:00 07/04/21 12:30 07/04/21 12:30 07/04/21 12:30 07/04/21 12:30 Patient doing well postoperatively. Discussed treatment with patient. She is having some residual cramping/contractions. Did receive 800 mcg of misoprostol rectally as well as tranexamic acid during surgery. Bleeding is scant. Vital signs stable at this time. Objective - Vital Signs/Intake & Output Vital Signs: Vital Signs x48h Temp Pulse Pulse Resp BP BP Pulse Ox 07/04/21 12:30 102 H 18 109/58 L 97 07/04/21 12:00 98.2 F 108 H 18 88/61 L 100 07/04/21 11:50 97.3 F L 108 H 14 115/74 100 07/04/21 11:40 97.5 F L 106 H 14 121/74 100 07/04/21 11:30 97.7 F 108 H 16 108/68 100 07/04/21 11:25 97.3 F L 110 H 18 122/71 100 07/04/21 11:20 97.3 F L 110 H 18 130/81 H 100 07/04/21 11:18 97.3 F L 110 H 20 126/85 H 100 07/04/21 09:12 130/56 L 07/04/21 09:10 121/56 L 07/04/21 09:08 126/59 L 07/04/21 09:06 124/55 L 07/04/21 09:04 120/58 L 07/04/21 09:02 120/61 07/04/21 09:00 112/48 L 07/04/21 08:59 99/67 07/04/21 08:58 99/67 07/04/21 08:55 99.1 F 110 H 18 103/52 L 99 07/04/21 07:15 104 H 129/66 07/04/21 06:40 116 H 16 149/73 H 100 Intake & Output: Intake & Output 07/01/21 07/02/21 07/03/21 07/04/21 23:59 23:59 23:59 23:59 Intake Total 2087.500 Output Total 390 1135 Balance -390 952.500 - Lab Results Fish Bones: 07/04/21 08:47 07/04/21 08:47 Other Labs: Lab Results x24hrs 07/04/21 07/04/21 07/03/21 Range/Units 08:47 08:47 16:41 WBC 14.1 H (4.8-10.8) x10^3/uL RBC 3.18 L (4.20-5.40) 10^6/uL Hgb 9.7 L (12.0-16.0) g/dL Hct 28.4 L (37.0-47.0) % MCV 89.3 (81.0-99.0) fL MCH 30.5 (27.0-31.0) pg MCHC 34.2 (32.0-36.0) g/dL RDW 12.7 (12.0-15.0) % Plt Count 392 (130-450) 10^3/uL MPV 8.3 (7.9-10.8) fL Neut # (Auto) 11.2 H (1.5-6.6) 10^3/uL Lymph # (Auto) 1.6 (1.5-3.5) 10^3/uL [place] # (Auto) 1.1 H (0.0-1.0) 10^3/uL Eos # (Auto) 0.0 (0.0-0.7) 10^3/uL Baso # (Auto) 0.0 (0.0-0.1) 10^3/uL Absolute Nucleated RBC 0.00 x10^3/uL Nucleated RBC % 0.0 /100WBC Sodium 132 L 132 L (135-145) mmol/L Potassium 3.7 4.0 (3.5-5.0) mmol/L Chloride 103 100 L (101-111) mmol/L Carbon Dioxide 20 L 20 L (21-32) mmol/L Anion Gap 9.0 12.0 (6-13) BUN 7 7 (6-20) mg/dL Creatinine 0.6 0.6 (0.4-1.0) mg/dL Estimated GFR (MDRD) 136 136 (>89) Glucose 118 H 106 H (70-100) mg/dL Calcium 8.9 9.7 (8.5-10.3) mg/dL Total Bilirubin 0.4 0.5 (0.2-1.0) mg/dL AST 20 27 (10-42) IU/L ALT 27 34 (10-60) IU/L Alkaline Phosphatase 57 66 (42-121) IU/L Total Protein 6.2 L 7.4 (6.7-8.2) g/dL Albumin 2.9 L 3.4 (3.2-5.5) g/dL Globulin 3.3 4.0 (2.1-4.2) g/dL Albumin/Globulin Ratio 0.9 L 0.9 L (1.0-2.2) Blood Type Antibody Screen Crossmatch IS Only 07/03/21 07/03/21 Range/Units 16:41 16:41 WBC 13.2 H (4.8-10.8) x10^3/uL RBC 3.86 L (4.20-5.40) 10^6/uL Hgb 11.8 L (12.0-16.0) g/dL Hct 34.5 L (37.0-47.0) % MCV 89.4 (81.0-99.0) fL MCH 30.6 (27.0-31.0) pg MCHC 34.2 (32.0-36.0) g/dL RDW 12.7 (12.0-15.0) % Plt Count 396 (130-450) 10^3/uL MPV 8.3 (7.9-10.8) fL Neut # (Auto) 11.5 H (1.5-6.6) 10^3/uL Lymph # (Auto) 0.8 L (1.5-3.5) 10^3/uL [place] # (Auto) 0.8 (0.0-1.0) 10^3/uL Eos # (Auto) 0.0 (0.0-0.7) 10^3/uL Baso # (Auto) 0.0 (0.0-0.1) 10^3/uL Absolute Nucleated RBC 0.00 x10^3/uL Nucleated RBC % 0.0 /100WBC Sodium (135-145) mmol/L Potassium (3.5-5.0) mmol/L Chloride (101-111) mmol/L Carbon Dioxide (21-32) mmol/L Anion Gap (6-13) BUN (6-20) mg/dL Creatinine (0.4-1.0) mg/dL Estimated GFR (MDRD) (>89) Glucose (70-100) mg/dL Calcium (8.5-10.3) mg/dL Total Bilirubin (0.2-1.0) mg/dL AST (10-42) IU/L ALT (10-60) IU/L Alkaline Phosphatase (42-121) IU/L Total Protein (6.7-8.2) g/dL Albumin (3.2-5.5) g/dL Globulin (2.1-4.2) g/dL Albumin/Globulin Ratio (1.0-2.2) Blood Type B POSITIVE Antibody Screen NEGATIVE Crossmatch IS Only See Detail
[2021-07-04] MEDS: oxyCODONE 5 MG TABLET PO PRN ×2 (14:45→22:00)
[2021-07-04] MEDS: ACETAMINOPHEN 500 MG TABLET PO SCH (14:45)
[2021-07-04 17:13] LABS: BASOPHILS # (AUTO) 0.1 10^3/uL (0.0-0.1); BASOPHILS % (AUTO) 0.4 %; HCT - HEMATOCRIT 27.5 % (37.0-47.0); HGB - HEMOGLOBIN 9.7 g/dL (12.0-16.0); LYMPHOCYTES # (AUTO) 1.8 10^3/uL (1.5-3.5); MEAN CORPUSCULAR HEMOGLOBIN 31.3 pg (27.0-31.0); MEAN CORPUSCULAR HGB CONC 35.3 g/dL (32.0-36.0); MEAN CORPUSCULAR VOLUME 88.7 fL (81.0-99.0); MEAN PLATELET VOLUME 8.7 fL (7.9-10.8); MONOCYTES # (AUTO) 1.3 10^3/uL (0.0-1.0); MONOCYTES % (AUTO) 6.7 %; NEUTROPHILS # (AUTO) 16.2 10^3/uL (1.5-6.6); NEUTROPHILS % (AUTO) 82.9 %; PLT - PLATELET COUNT 328 10^3/uL (130-450); RED CELL DISTRIBUTION WIDTH 13.2 % (12.0-15.0); WHITE BLOOD COUNT 19.5 x10^3/uL (4.8-10.8)
[2021-07-04] MEDS: metroNIDAZOLE 250 MG TABLET PO SCH (18:15)
[2021-07-04] MEDS: PHENAZOPYRIDINE 100 MG TABLET PO SCH (18:15)
[2021-07-04] MEDS: IBUPROFEN 600 MG TABLET PO SCH (18:15)
[2021-07-04 23:03] LABS: BASOPHILS % (AUTO) 0.3 %; EOSINOPHILS % (AUTO) 0.2 %; HCT - HEMATOCRIT 20.8 % (37.0-47.0); HGB - HEMOGLOBIN 7.4 g/dL (12.0-16.0); LYMPHOCYTES % (AUTO) 12.1 %; MEAN CORPUSCULAR HEMOGLOBIN 31.4 pg (27.0-31.0); MEAN CORPUSCULAR HGB CONC 35.6 g/dL (32.0-36.0); MEAN CORPUSCULAR VOLUME 88.1 fL (81.0-99.0); MEAN PLATELET VOLUME 8.5 fL (7.9-10.8); MONOCYTES % (AUTO) 9.5 %; NEUTROPHILS % (AUTO) 76.2 %; PLT - PLATELET COUNT 278 10^3/uL (130-450); RED BLOOD COUNT 2.36 10^6/uL (4.20-5.40); RED CELL DISTRIBUTION WIDTH 13.2 % (12.0-15.0); WHITE BLOOD COUNT 18.1 x10^3/uL (4.8-10.8)
[2021-07-04 23:15] LABS: ABNORMAL LYMPHS % (MANUAL) 0 %
[2021-07-04 23:33] LABS: BAND NEUTROPHILS % (MANUAL) 2 %; DIFFERENTIAL COMMENT MANUAL DIFFERENTIAL; EOSINOPHILS # (MANUAL) 0.2 10^3/uL (0-0.7); LYMPHOCYTES # (MANUAL) 2.2 10^3/uL (1.5-3.5); LYMPHOCYTES % (MANUAL) 12 %; MONOCYTES # (MANUAL) 0.7 10^3/uL (0.0-1.0); PLATELET ESTIMATE, MANUAL NORMAL (130-450,000) (NORMAL); PLATELET MORPHOLOGY NORMAL APPEARANCE (NORMAL); RBC MORPHOLOGY (MULTIPLE) NORMAL APPEARANCE (NORMAL); WBC MORPHOLOGY (MULTIPLE) NORMAL APPEARANCE (NORMAL)
[2021-07-05] MEDS: AMPICILLIN 2 GM in SODIUM CHLORIDE 0.9% MINIBAG 100 ML IV SCH ×5 (01:10→19:54)
[2021-07-05] MEDS: IBUPROFEN 600 MG TABLET PO SCH ×5 (01:10→19:55)
[2021-07-05] MEDS: DOCUSATE SODIUM 100 MG CAPSULE PO PRN ×2 (01:10→19:55)
[2021-07-05] MEDS: ACETAMINOPHEN 500 MG TABLET PO SCH ×4 (01:10→19:55)
[2021-07-05] MEDS: LACTATED RINGERS 1,000 ML IV SCH (06:49)
[2021-07-05] MEDS: SIMETHICONE CHEW 80 MG TABLET PO PRN ×2 (07:01→19:56)
[2021-07-05] MEDS: metroNIDAZOLE 250 MG TABLET PO SCH ×2 (08:00→17:16)
[2021-07-05] MEDS: PHENAZOPYRIDINE 100 MG TABLET PO SCH ×3 (08:00→17:16)
[2021-07-05 08:17] LABS: HGB - HEMOGLOBIN 6.5 g/dL (12.0-16.0)
[2021-07-05 08:18] LABS: HCT - HEMATOCRIT 18.6 % (37.0-47.0)
--- NOTE | 2021-07-05 08:42 | PROVIDER PROGRESS NOTE ---
Subjective - Prog Note Date Prog Note Date: 07/05/21 Prog Note Time: 08:42 - Subjective Pt reports feeling: Improved Subjective: Subjective Patient doing much better this morning. Pain is well controlled. A couple more near syncopal events last night. Did not lose consciousness, but does say she sees "lightning worms" that sound like visual disturbances during syncope. She did have lochia appropriate. Denies heavy bleeding. Ambulating with assistance. Pelvic and abdominal pain well-controlled. Tolerating regular diet Had some pain with voiding yesterday, started Pyridium, now doing well. Says she thinks her urethra got scratched with catheter. Passing flatus. Denies BM. Objective General: Alert, oriented, no apparent distress. Cardiovascular: Regular rate. Regular rhythm. Lungs: No increased work of breathing. Abdomen: Uterus firm. Below umbilicus. No guarding or rebound. Appropriately tender. Psych: Insight and judgment intact. Grieving appropriately, but also smiling and laughing at times. Assessment and Plan 35-year-old G3P 0200 status post of previable and D&C for retained placenta now postoperative day 1 day 1. -Routine care -Anticipate discharge tomorrow -Grieving appropriately after loss. Acute blood loss anemia secondary to hemorrhage and retained placenta -Status post 2 units PRBC, this morning's hemoglobin/hematocrit 6.5/18.6. Will transfuse 1 unit, and possibly a second. -Vitally stable at this time, but near syncopal with standing. -Plan to repeat CBC 4 hours after blood. Chorioamnionitis -We will continue antibiotics for today. Ampicillin and gentamicin today. Afebrile, but white count did increase to 19 yesterday which may be normal post delivery and surgery, but due to uterine tenderness and likelihood of infection, will continue antibiotics for 1 day. Bacterial vaginosis -We will continue metronidazole until discharge Objective - Vital Signs/Intake & Output Vital Signs: Vital Signs x48h Temp Pulse Resp BP Pulse Ox 07/05/21 08:05 97.9 F 93 16 118/50 L 100 07/05/21 05:17 97.7 F 98 18 118/59 L 99 07/05/21 01:31 98.2 F 98 18 117/68 100 Intake & Output: Intake & Output 05/03/2507/03/21 07/04/21 07/05/21 23:59 23:59 23:59 23:59 Intake Total 4130.833 1788.333 Output Total 390 1635 250 Balance -390 2495.833 1538.333 - Lab Results Fish Bones: 07/05/21 07:58 07/04/21 08:47 Other Labs: Lab Results x24hrs 07/05/21 07/04/21 07/04/21 Range/Units 07:58 22:53 17:06 WBC 18.1 H 19.5 H (4.8-10.8) x10^3/uL RBC 2.36 L 3.10 L (4.20-5.40) 10^6/uL Hgb 6.5 L* 7.4 L 9.7 L (12.0-16.0) g/dL Hct 18.6 L* 20.8 L 27.5 L (37.0-47.0) % MCV 88.1 88.7 (81.0-99.0) fL MCH 31.4 H 31.3 H (27.0-31.0) pg MCHC 35.6 35.3 (32.0-36.0) g/dL RDW 13.2 13.2 (12.0-15.0) % Plt Count 278 328 (130-450) 10^3/uL MPV 8.5 8.7 (7.9-10.8) fL Neut # (Auto) Not Reportable 16.2 H (1.5-6.6) 10^3/uL Lymph # (Auto) Not Reportable 1.8 (1.5-3.5) 10^3/uL [place] # (Auto) Not Reportable 1.3 H (0.0-1.0) 10^3/uL Eos # (Auto) Not Reportable 0.0 (0.0-0.7) 10^3/uL Baso # (Auto) Not Reportable 0.1 (0.0-0.1) 10^3/uL Absolute Nucleated RBC Not Reportable 0.00 x10^3/uL Total Counted 100 Band Neuts % (Manual) 2 (0 - 10) % Abnorm Lymph % (Manual) 0 % Nucleated RBC % Not Reportable 0.0 /100WBC Neutrophils # (Manual) 15.0 H (1.5-6.6) 10^3/uL Lymphocytes # (Manual) 2.2 (1.5-3.5) 10^3/uL Monocytes # (Manual) 0.7 (0.0-1.0) 10^3/uL Eosinophils # (Manual) 0.2 (0-0.7) 10^3/uL Basophils # (Manual) 0.0 (0-0.1) 10^3/uL Differential Comment MANUAL DIFFERENTIAL WBC Morphology NORMAL APPEARANCE (NORMAL) Platelet Estimate NORMAL (130-450,000) (NORMAL) Platelet Morphology NORMAL APPEARANCE (NORMAL) RBC Morph Micro Appear NORMAL APPEARANCE (NORMAL) Sodium (135-145) mmol/L Potassium (3.5-5.0) mmol/L Chloride (101-111) mmol/L Carbon Dioxide (21-32) mmol/L Anion Gap (6-13) BUN (6-20) mg/dL Creatinine (0.4-1.0) mg/dL Estimated GFR (MDRD) (>89) Glucose (70-100) mg/dL Calcium (8.5-10.3) mg/dL Total Bilirubin (0.2-1.0) mg/dL AST (10-42) IU/L ALT (10-60) IU/L Alkaline Phosphatase (42-121) IU/L Total Protein (6.7-8.2) g/dL Albumin (3.2-5.5) g/dL Globulin (2.1-4.2) g/dL Albumin/Globulin Ratio (1.0-2.2) Blood Type Antibody Screen Crossmatch IS Only 07/04/21 07/04/21 07/03/21 Range/Units 08:47 08:47 16:41 WBC 14.1 H (4.8-10.8) x10^3/uL RBC 3.18 L (4.20-5.40) 10^6/uL Hgb 9.7 L (12.0-16.0) g/dL Hct 28.4 L (37.0-47.0) % MCV 89.3 (81.0-99.0) fL MCH 30.5 (27.0-31.0) pg MCHC 34.2 (32.0-36.0) g/dL RDW 12.7 (12.0-15.0) % Plt Count 392 (130-450) 10^3/uL MPV 8.3 (7.9-10.8) fL Neut # (Auto) 11.2 H (1.5-6.6) 10^3/uL Lymph # (Auto) 1.6 (1.5-3.5) 10^3/uL [place] # (Auto) 1.1 H (0.0-1.0) 10^3/uL Eos # (Auto) 0.0 (0.0-0.7) 10^3/uL Baso # (Auto) 0.0 (0.0-0.1) 10^3/uL Absolute Nucleated RBC 0.00 x10^3/uL Total Counted Band Neuts % (Manual) (0 - 10) % Abnorm Lymph % (Manual) % Nucleated RBC % 0.0 /100WBC Neutrophils # (Manual) (1.5-6.6) 10^3/uL Lymphocytes # (Manual) (1.5-3.5) 10^3/uL Monocytes # (Manual) (0.0-1.0) 10^3/uL Eosinophils # (Manual) (0-0.7) 10^3/uL Basophils # (Manual) (0-0.1) 10^3/uL Differential Comment WBC Morphology (NORMAL) Platelet Estimate (NORMAL) Platelet Morphology (NORMAL) RBC Morph Micro Appear (NORMAL) Sodium 132 L (135-145) mmol/L Potassium 3.7 (3.5-5.0) mmol/L Chloride 103 (101-111) mmol/L Carbon Dioxide 20 L (21-32) mmol/L Anion Gap 9.0 (6-13) BUN 7 (6-20) mg/dL Creatinine 0.6 (0.4-1.0) mg/dL Estimated GFR (MDRD) 136 (>89) Glucose 118 H (70-100) mg/dL Calcium 8.9 (8.5-10.3) mg/dL Total Bilirubin 0.4 (0.2-1.0) mg/dL AST 20 (10-42) IU/L ALT 27 (10-60) IU/L Alkaline Phosphatase 57 (42-121) IU/L Total Protein 6.2 L (6.7-8.2) g/dL Albumin 2.9 L (3.2-5.5) g/dL Globulin 3.3 (2.1-4.2) g/dL Albumin/Globulin Ratio 0.9 L (1.0-2.2) Blood Type B POSITIVE Antibody Screen NEGATIVE Crossmatch IS Only See Detail
[2021-07-05] MEDS ORDERED: GENTAMICIN 80MG VIAL 500 MG in SODIUM CHLORIDE 0.9% 100ML 100 ML IV ONE (09:03)
[2021-07-05] MEDS ORDERED: GENTAMICIN IV ONE (10:00)
[2021-07-05] MEDS ORDERED: SODIUM CHLORIDE 0.9% IV ONE (10:00)
[2021-07-05 16:54] LABS: BASOPHILS % (AUTO) 0.3 %; EOSINOPHILS # (AUTO) 0.1 10^3/uL (0.0-0.7); EOSINOPHILS % (AUTO) 1.1 %; LYMPHOCYTES % (AUTO) 17.6 %; MEAN CORPUSCULAR HGB CONC 35.1 g/dL (32.0-36.0); MEAN CORPUSCULAR VOLUME 88.4 fL (81.0-99.0); MEAN PLATELET VOLUME 8.6 fL (7.9-10.8); MONOCYTES % (AUTO) 8.5 %; NEUTROPHILS % (AUTO) 69.8 %; PLT - PLATELET COUNT 228 10^3/uL (130-450); RED BLOOD COUNT 2.16 10^6/uL (4.20-5.40); RED CELL DISTRIBUTION WIDTH 13.6 % (12.0-15.0); WHITE BLOOD COUNT 11.5 x10^3/uL (4.8-10.8)
[2021-07-05 16:57] LABS: HGB - HEMOGLOBIN 6.7 g/dL (12.0-16.0)
[2021-07-05 16:59] LABS: HCT - HEMATOCRIT 19.1 % (37.0-47.0)
[2021-07-05] MEDS: SODIUM CHLORIDE FLUSH 0.9% 10 ML SYRINGE IVP SCH (17:07)
[2021-07-05 17:38] LABS: PLATELET ESTIMATE, MANUAL NORMAL (130-450,000) (NORMAL); PLATELET MORPHOLOGY NORMAL APPEARANCE (NORMAL); RBC MORPHOLOGY (MULTIPLE) NORMAL APPEARANCE (NORMAL); SLIDE REVIEW? Indicated; WBC MORPHOLOGY (MULTIPLE) NORMAL APPEARANCE (NORMAL)
[2021-07-05] MEDS: SODIUM CHLORIDE FLUSH 0.9% 10 ML SYRINGE IVP PRN ×2 (19:54→20:54)
[2021-07-05] MEDS ORDERED: FERRIC GLUCONATE 125 MG in SODIUM CHLORIDE 0.9% 100ML 100 ML IV ONE (20:09)
--- NOTE | 2021-07-06 01:35 | PROVIDER PROGRESS NOTE ---
Subjective - Prog Note Date Prog Note Date: 07/05/21 Prog Note Time: 16:30 - Subjective Pt reports feeling: Improved Subjective: Patient feeling markedly improved after 1 unit PRBC this am. Post transfusion HCT 19, minimal rise from 18 prior to tranfusion. No dizzziness or lightheadedness. No vision changes or black spots noted earlier today. No abdominal pain. Mood is uplifted given presence of visitors. Objective - Vital Signs/Intake & Output Reviewed Vital Signs: Yes Vital Signs: Vital Signs x48h Temp Pulse Resp BP Pulse Ox 07/06/21 00:10 98.1 F 94 18 122/73 99 07/05/21 20:00 98.4 F 96 18 124/59 L 97 Intake & Output: Intake & Output 07/03/21 07/04/21 07/05/21 07/06/21 23:59 23:59 23:59 23:59 Intake Total 4130.833 3902.500 250 Output Total 390 1635 1800 Balance -390 2495.833 2102.500 250 - Objective General Appearance: positive: No acute distress Respiratory: positive: No respiratory distress Cardiovascular: positive: Other (RR) Peripheral Pulses: 2+ Dorsalis pedis (R), 2+ Dorsalis pedis (L) Abdomen: positive: Other (S&NT. mild distention) Skin: positive: Color nml, Warm, Dry Extremities: positive: Non-tender, Pedal edema Neurologic/Psychiatric: positive: Oriented x3 - Lab Results Fish Bones: 07/05/21 16:45 07/04/21 08:47 Other Labs: Lab Results x24hrs 07/05/21 07/05/21 07/04/21 Range/Units 16:45 07:58 21:00 WBC 11.5 H (4.8-10.8) x10^3/uL RBC 2.16 L (4.20-5.40) 10^6/uL Hgb 6.7 L* 6.5 L* (12.0-16.0) g/dL Hct 19.1 L* 18.6 L* (37.0-47.0) % MCV 88.4 (81.0-99.0) fL MCH 31.0 (27.0-31.0) pg MCHC 35.1 (32.0-36.0) g/dL RDW 13.6 (12.0-15.0) % Plt Count 228 (130-450) 10^3/uL MPV 8.6 (7.9-10.8) fL Neut # (Auto) 8.0 H (1.5-6.6) 10^3/uL Lymph # (Auto) 2.0 (1.5-3.5) 10^3/uL [place] # (Auto) 1.0 (0.0-1.0) 10^3/uL Eos # (Auto) 0.1 (0.0-0.7) 10^3/uL Baso # (Auto) 0.0 (0.0-0.1) 10^3/uL Absolute Nucleated RBC 0.00 x10^3/uL Nucleated RBC % 0.0 /100WBC Manual Slide Review Indicated WBC Morphology NORMAL APPEARANCE (NORMAL) Platelet Estimate NORMAL (130-450,000) (NORMAL) Platelet Morphology NORMAL APPEARANCE (NORMAL) RBC Morph Micro Appear NORMAL APPEARANCE (NORMAL) POC Whole Bld Glucose 122 H (70 - 100) mg/dL Blood Type Antibody Screen Crossmatch IS Only 07/03/21 Range/Units 16:41 WBC (4.8-10.8) x10^3/uL RBC (4.20-5.40) 10^6/uL Hgb (12.0-16.0) g/dL Hct (37.0-47.0) % MCV (81.0-99.0) fL MCH (27.0-31.0) pg MCHC (32.0-36.0) g/dL RDW (12.0-15.0) % Plt Count (130-450) 10^3/uL MPV (7.9-10.8) fL Neut # (Auto) (1.5-6.6) 10^3/uL Lymph # (Auto) (1.5-3.5) 10^3/uL [place] # (Auto) (0.0-1.0) 10^3/uL Eos # (Auto) (0.0-0.7) 10^3/uL Baso # (Auto) (0.0-0.1) 10^3/uL Absolute Nucleated RBC x10^3/uL Nucleated RBC % /100WBC Manual Slide Review WBC Morphology (NORMAL) Platelet Estimate (NORMAL) Platelet Morphology (NORMAL) RBC Morph Micro Appear (NORMAL) POC Whole Bld Glucose (70 - 100) mg/dL Blood Type B POSITIVE Antibody Screen NEGATIVE Crossmatch IS Only See Detail Assessment/Plan - Problem List (1) delivery, delivered Impression: PPD#1 s/p of 20 week with NND and PPH -Patient received 3 units of PRBC, improvement in fatigue and vision change -HCT 19. Patient will walk later. If symptomatic, will receive additional unit of blood. If no symptoms, will given IV ferric gluconate -WBC improving Has been continued on ampicillin Q6H and gentamicin 5mg/kg Q 24 hours Improvement in status. Anticipate DC home in am with continued improvement ETA: no symptoms. Will administer IV iron in the am
[2021-07-06] MEDS: AMPICILLIN 2 GM in SODIUM CHLORIDE 0.9% MINIBAG 100 ML IV SCH ×2 (02:14→08:21)
[2021-07-06] MEDS: IBUPROFEN 600 MG TABLET PO SCH ×3 (02:14→14:17)
[2021-07-06] MEDS: SODIUM CHLORIDE FLUSH 0.9% 10 ML SYRINGE IVP PRN ×2 (02:15→03:14)
[2021-07-06] MEDS: ACETAMINOPHEN 500 MG TABLET PO SCH ×2 (04:09→12:38)
[2021-07-06] MEDS: LACTATED RINGERS 1,000 ML IV SCH ×2 (07:09→07:10)
[2021-07-06] MEDS: PHENAZOPYRIDINE 100 MG TABLET PO SCH ×2 (08:22→12:37)
[2021-07-06] MEDS: metroNIDAZOLE 250 MG TABLET PO SCH (08:22)
[2021-07-06 08:45] LABS: BASOPHILS % (AUTO) 0.5 %; EOSINOPHILS % (AUTO) 1.3 %; HCT - HEMATOCRIT 22.4 % (37.0-47.0); HGB - HEMOGLOBIN 7.9 g/dL (12.0-16.0); LYMPHOCYTES % (AUTO) 12.5 %; MEAN CORPUSCULAR HEMOGLOBIN 31.7 pg (27.0-31.0); MEAN CORPUSCULAR HGB CONC 35.3 g/dL (32.0-36.0); MEAN PLATELET VOLUME 8.5 fL (7.9-10.8); MONOCYTES % (AUTO) 4.3 %; PLT - PLATELET COUNT 294 10^3/uL (130-450); RED BLOOD COUNT 2.49 10^6/uL (4.20-5.40); RED CELL DISTRIBUTION WIDTH 13.4 % (12.0-15.0); WHITE BLOOD COUNT 12.6 x10^3/uL (4.8-10.8)
--- NOTE | 2021-07-06 08:46 | PROVIDER PROGRESS NOTE ---
Objective - Vital Signs/Intake & Output Vital Signs: Vital Signs x48h Temp Pulse Resp BP Pulse Ox 07/06/21 08:31 98.2 F 108 H 18 131/59 H 98 Intake & Output: Intake & Output 07/03/21 07/04/21 07/05/21 07/06/21 23:59 23:59 23:59 23:59 Intake Total 4130.833 3902.500 361 Output Total 390 1635 1800 Balance -390 2495.833 2102.500 361 - Lab Results Fish Bones: 07/05/21 16:45 07/04/21 08:47 Other Labs: Lab Results x24hrs 07/05/21 07/04/21 07/03/21 Range/Units 16:45 21:00 16:41 WBC 11.5 H (4.8-10.8) x10^3/uL RBC 2.16 L (4.20-5.40) 10^6/uL Hgb 6.7 L* (12.0-16.0) g/dL Hct 19.1 L* (37.0-47.0) % MCV 88.4 (81.0-99.0) fL MCH 31.0 (27.0-31.0) pg MCHC 35.1 (32.0-36.0) g/dL RDW 13.6 (12.0-15.0) % Plt Count 228 (130-450) 10^3/uL MPV 8.6 (7.9-10.8) fL Neut # (Auto) 8.0 H (1.5-6.6) 10^3/uL Lymph # (Auto) 2.0 (1.5-3.5) 10^3/uL [place] # (Auto) 1.0 (0.0-1.0) 10^3/uL Eos # (Auto) 0.1 (0.0-0.7) 10^3/uL Baso # (Auto) 0.0 (0.0-0.1) 10^3/uL Absolute Nucleated RBC 0.00 x10^3/uL Nucleated RBC % 0.0 /100WBC Manual Slide Review Indicated WBC Morphology NORMAL APPEARANCE (NORMAL) Platelet Estimate NORMAL (130-450,000) (NORMAL) Platelet Morphology NORMAL APPEARANCE (NORMAL) RBC Morph Micro Appear NORMAL APPEARANCE (NORMAL) POC Whole Bld Glucose 122 H (70 - 100) mg/dL Blood Type B POSITIVE Antibody Screen NEGATIVE Crossmatch IS Only See Detail
[2021-07-06 08:50] LABS: ABNORMAL LYMPHS % (MANUAL) 0 %
[2021-07-06] MEDS ORDERED: FERRIC GLUCONATE 125 MG in SODIUM CHLORIDE 0.9% 100ML 100 ML IV ONE (09:00)
[2021-07-06 09:07] LABS: BAND NEUTROPHILS % (MANUAL) 3 %; LYMPHOCYTES # (MANUAL) 1.9 10^3/uL (1.5-3.5); LYMPHOCYTES % (MANUAL) 15 %; METAMYELOCYTES % (MANUAL) 1 %; MONOCYTES # (MANUAL) 0.3 10^3/uL (0.0-1.0); NEUTROPHILS # (MANUAL) 9.3 10^3/uL (1.5-6.6)
[2021-07-06 09:08] LABS: DIFFERENTIAL COMMENT MANUAL DIFFERENTIAL; PLATELET ESTIMATE, MANUAL NORMAL (130-450,000) (NORMAL); PLATELET MORPHOLOGY NORMAL APPEARANCE (NORMAL)
--- NOTE | 2021-07-06 10:41 | Discharge Plan ---
Discharge Plan Problem Reviewed?: Yes Disposition: Home, Self Care Condition: Good Diet: Regular Activity Restrictions: Additional Comments Shower Restrictions: No Additional Instructions or Follow Up instructions: PELVIC REST: Nothing in the vagina for 6 weeks: No intercourse, tampons, douching. You are at high risk of uterine infection during this time frame. WARNING SIGNS: Call for: -Fever greater than 100.5 -Pain that does not improve with pain medication -Heavy bleeding in which you are soaking a pad an hour for 2 hours in a row -Pain or swelling in one leg and not the other +/- shortness of breath or chest pain LIFTING: No lifting more than 10# for 4 weeks DRIVING: No driving while on narcotics Depression is a mood disorder that affects the way you think and feel. The most common symptom is a feeling of deep sadness. You may also feel as if you just can't cope with life. Other symptoms include: Gaining or losing a lot of weight Sleeping too much or too little Feeling tired all the time Feeling restless Crying a lot Having too little or too much appetite. Withdrawing from friends and family Having headaches, aches and pains, or stomach problems that won't go away. Fears of harming your baby Lack of interest in your baby Feeling worthless or guilty No longer finding pleasure in things you used to Having trouble thinking clearly or making decisions Thinking about or suicide Resources National [place] of Mental Pkljsf669-512-7568thy.[facility].nih.gov National [place] on Mental Oqlehwh627-816-1806oih.[facility].org Mental Health Xfqouba659-749-4723gzf.[facility].org National Suicide Vxyfkww143-366-7998 (781-SUICIDE) No Smoking: If you smoke, Please STOP! Call for help. Follow-up with: Austin Duron MD [Provider Admit Priv/Credential] -
--- NOTE | 2021-07-06 10:48 | DISCHARGE SUMMARY ---
Discharge Summary Admit Date: 07/03/21 Discharge Date: 07/06/21 Discharging Provider: Austin Duron MD Code Status: Attempt Resuscitation Condition at Discharge: Good Discharge Disposition: 01 Home, Self Care - DIAGNOSES Admission Diagnoses: Previable rupture of membranes 20 weeks gestation Previable labor Discharge Diagnoses with Status of Each Condition: Previable rupture of membranes: Delivered 20 weeks gestation: Delivered Previable labor: Delivered Retained placenta: Status post D&C Chorioamnionitis: Resolved hemorrhage: Stable, received 3 units PRBC - HPI History of Present Illness: Subjective Patient reports she is doing well. Lochia appropriate. Denies heavy bleeding. Ambulating. Pelvic and abdominal pain well-controlled. Tolerating oral intake. Diet: Regular. Voiding without difficulty. Passing flatus. Denies BM. Appropriately grieving. Denies feeling lightheaded, dizzy or excessively fatigued. Objective General: Alert, oriented, no apparent distress. Cardiovascular: Regular rate. Regular rhythm. Lungs: No increased work of breathing. Abdomen: Uterus firm. Below umbilicus. No guarding or rebound. Extremities: Small, 1cm loose skin on right buttocks. Likely a ruptured blister. Orthostatic vitals normal. - HOSPITAL COURSE Hospital Course: Patient is a 35-year-old -0-2-0 who presented at 20 weeks 1 day gestation after spontaneous rupture membranes 6 days prior. She was previously counseled on risk of rupture, and opted for expectant management. She returned after the onset of labor. She was edilia every 2 to 3 minutes, feel cardiectomy was still noted. She allowed to labor on her own without augmentation as she was afebrile and edilia sufficiently. She continued to contract through the night, and proceeded with spontaneous vaginal delivery of a breech 20-week . was born alive and subsequently passed shortly after . She had retained placenta and while waiting for resolution, she had a syncopal event, presumed to be due to blood loss and was taken to the OR f or dilation curettage for retained placenta. Due to blood loss, she received 3 units of PRBCs throughout her stay. She did receive ampicillin and gentamicin for presumed chorioamnionitis. , she remained afebrile with stable vital signs. course was, after surgery, and she was discharged on day 2. - ALLERGIES Allergies/Adverse Reactions: Allergies Allergy/AdvReac Type Severity Reaction Status Date / Time nut - unspecified Allergy Unknown Verified 07/03/21 18:58 tramadol Allergy Unknown Verified 07/03/21 18:58 - MEDICATIONS Home Medications: Ambulatory Orders Medication Instructions Recorded Confirmed Progesterone,Micronized 200 mg PO DAILY #30 cap 06/29/21 [Prometrium] metroNIDAZOLE [Flagyl] 500 mg PO BID 7 Days #14 tablet 06/29/21 Acetaminophen [Acetaminophen Extra 1,000 mg PO Q8H PRN #60 tablet 07/06/21 Strength] Docusate Sodium 100Mg Capsule 100 - 200 mg PO BID PRN #60 cap 07/06/21 [Colace 100Mg Capsule] Ibuprofen [Motrin] 600 mg PO Q6H PRN #30 tab 07/06/21 - LABS Result Diagrams: 07/06/21 08:40 07/04/21 08:47 - FOLLOW UP Follow Up: 1 week with [facility] women[facility] care - TIME SPENT Time Spent in Discharge (Minutes): 30
[2021-07-06 12:34] VITALS: BP 134/57
== END 2021-07-06 17:35 | disposition home or self-care (01) | DRG 805 ==
LOC: WFO 15:13 → FBP 15:15 → WFO 15:51 → OBSVTOIN 17:30
PROVIDERS: ADMIT Obstetrics & Gynecology; ATTEND Obstetrics & Gynecology
PROC: 10D17Z9 Manual Extraction of Products of Conception, Retained, Via Natural or Artificial Opening (ICD-10-PCS; 2021-07-04)
PROC: 10E0XZZ Delivery of Products of Conception, External Approach (ICD-10-PCS; principal; 2021-07-04 09:45)
PROC: 30233N1 Transfusion of Nonautologous Red Blood Cells into Peripheral Vein, Percutaneous Approach (ICD-10-PCS; 2021-07-05)
DX: O42.012 Preterm premature rupture of membranes, onset of labor within 24 hours of rupture, second trimester (principal); O41.1220 Chorioamnionitis, second trimester, not applicable or unspecified; Z37.0 Single live birth; O75.3 Other infection during labor; O72.0 Third-stage hemorrhage; D62 Acute posthemorrhagic anemia; Z3A.20 20 weeks gestation of pregnancy; O32.1XX0 Maternal care for breech presentation, not applicable or unspecified; O75.89 Other specified complications of labor and delivery; R03.0 Elevated blood-pressure reading, without diagnosis of hypertension; O77.0 Labor and delivery complicated by meconium in amniotic fluid; O90.81 Anemia of the puerperium; O99.214 Obesity complicating childbirth; Z87.891 Personal history of nicotine dependence
CPT/HCPCS: 36415; 76857; 80053; 85014; 85018; 85025; 86850; 86900; 86901; 86920; 87070; 87205; 99215; A9270; J2916; J7120; P9016